=== PATIENT | female | born 1940 | race Asian ===

== ENCOUNTER → 2020-04-04 | Outpatient (CLI) | payer OTHER ==
[~2020-04-04] MED LIST: ALLOPURINOL 10100 M1 PO; ASPIRIN325 PO; BENICAR40 MG PO; CARVEDILOL25 MG PO; CIPROFLOXACIN500 M1 PO; COREG PO; GEMFIBROZIL 60600 MG PO; GLIPIZIDE ER2.5 MG PO; GLIPIZIDE ER5 MG PO; LISINOPRIL10 MG PO; PREDNISONE 20 M20 MG PO; SIMVASTATIN40 MG PO; VERAPAMIL E.R240 M1 PO; ZANTAC 150MG T150 M1 PO; [UNRECOGNIZED DRUG - CODE] PO
== END ==
LOC: RAD 16:58
PROVIDERS: ATTEND Neuromusculoskeletal Medicine & OMM
DX: M47.26 Other spondylosis with radiculopathy, lumbar region (principal)

== ENCOUNTER → 2020-04-19 | Outpatient (CLI) | payer OTHER | LOC: MRI 09:46 | PROVIDERS: ATTEND Neuromusculoskeletal Medicine & OMM | DX: M51.26 Other intervertebral disc displacement, lumbar region (principal); M51.36 Other intervertebral disc degeneration, lumbar region; M47.816 Spondylosis without myelopathy or radiculopathy, lumbar region; M41.86 Other forms of scoliosis, lumbar region; M48.061 Spinal stenosis, lumbar region without neurogenic claudication ==

== ENCOUNTER → 2021-07-25 | Outpatient (CLI) | payer OTHER | END | disposition home or self-care (01) | LOC: MRI 10:22 | PROVIDERS: ATTEND Family Medicine | DX: I67.89 Other cerebrovascular disease (principal); J34.89 Other specified disorders of nose and nasal sinuses; R41.0 Disorientation, unspecified; M47.812 Spondylosis without myelopathy or radiculopathy, cervical region ==